=== PATIENT | female | born 1995 | race Caucasian/White ===

== ENCOUNTER 2017-05-22 09:49 | Emergency (ER) | payer OTHER | END 2017-05-22 11:00 | disposition home or self-care (01) | LOC: MADERS 09:49 | DX: J10.1 Influenza due to other identified influenza virus with other respiratory manifestations (principal); F41.9 Anxiety disorder, unspecified | CPT/HCPCS: 87804; 99283 ==

== ENCOUNTER 2017-08-15 16:15 | Emergency (ER) | payer MEDICAID, OTHER | END 2017-08-15 19:02 | disposition home or self-care (01) | LOC: MADERS 16:15 | DX: J02.9 Acute pharyngitis, unspecified (principal); F17.210 Nicotine dependence, cigarettes, uncomplicated | CPT/HCPCS: 87081; 87430; 87804; 99283 ==

== ENCOUNTER 2018-02-11 12:40 | Emergency (ER) | payer MEDICAID ==
[~2018-02-11 12:40] MED LIST: Sodium Chloride 0.9% 1,000 ML BAG ONE
[2018-02-11 13:13] LABS: Bilirubin Negative (Negative); Blood, Urine Trace (Negative); Glucose, Urine (Dipstick) Negative (Negative); Leukocyte Trace (Negative); Nitrite Negative (Negative); Protein, Urine (Dipstick) Negative (Neg-Trace); Urobilinogen 0.2 mg/dL (0.2-1.0); pH, Urine 6.5 (5.0-9.0)
[2018-02-11 13:14] LABS: #Basophils 0.1 thou/uL (0.0-0.2); #Lymphocytes 2.5 thou/uL (1.20-3.40); #Monocytes 0.5 thou/uL (0.11-0.59); #Neutrophils 4.4 thou/uL (1.40-6.50); %Basophils 0.9 % (0.0-1.0); %Eosinophils 0.6 % (0.0-10.0); %Lymphocytes 33.4 % (21.0-51.0); %Monocytes 6.8 % (0.0-10.0); %Neutrophils 58.3 % (42.0-75.0); Hemoglobin 15.1 g/dL (12.0-16.0); Mean Corpuscular HGB CONC 33.5 g/dL (32.0-36.0); Mean Corpuscular Hemoglobin 31.7 pg (27.0-31.0); Mean Corpuscular Volume 94.6 fL (78.0-98.0); Platelet Count 326 thou/uL (130-400); RBC Distribution Width 11.8 % (11.5-14.5); Red Blood Cell (RBC) Count 4.77 mill/uL (4.20-5.40); White Blood Cell (WBC) Count 7.6 thou/uL (4.8-10.8)
[2018-02-11 13:15] LABS: Clarity Hazy (Clear); Pregnancy Test - Urine (BHCG) Negative (Negative); Pregu Control Background? CLEAR/WHITE (CLR/WHITE); Pregu Control Bar Appear? YES (CONTROL BAR); Specific Gravity 1.003 (1.002-1.036)
[2018-02-11 13:16] LABS: Specific Gravity, Urine 1.003 (1.002-1.036)
[2018-02-11 13:18] LABS: Bacteria/HPF Rare-Few HPF (None Seen); RBC/HPF 0-3 HPF (0-3); Squamous Epithelial 0-3 HPF (0-3); WBC/HPF 0-3 HPF (0-3)
[2018-02-11 13:29] LABS: ALT (SGPT) 14 U/L (8-55); AST (SGOT) 20 U/L (5-34); Albumin 5.1 g/dL (3.5-5.0); Alcohol Less than 10 mg/dL (Less than 10); Alkaline Phosphatase 75 U/L (40-150); Anion Gap 16 mmol/L (10-20); BUN (Urea Nitrogen) 7 mg/dL (7.0-18.7); Bilirubin, Total 0.8 mg/dL (0.2-1.2); CK (CPK) 109 U/L (29-168); Calc. Creatinine Clearance 0 mL/min (70-130); Calcium 10.1 mg/dL (7.8-10.44); Carbon Dioxide 20 mmol/L (22-29); Chloride 106 mmol/L (98-107); Estimated GFR-MDRD Greater than 90; Globulin 3.1 g/dL (2.4-3.5); Glucose 103 mg/dL (70-105); Potassium 3.7 mmol/L (3.5-5.1); Protein, Total 8.2 g/dL (6.0-8.3); Sodium 138 mmol/L (136-145)
== END 2018-02-11 13:43 | disposition home or self-care (01) ==
LOC: MADERS 12:40
DX: F41.9 Anxiety disorder, unspecified (principal); F17.210 Nicotine dependence, cigarettes, uncomplicated
CPT/HCPCS: 80053; 80307; 81003; 81015; 81025; 82550; 85025; 96360; J7050

== ENCOUNTER 2018-11-01 14:56 | Outpatient (CLI) | payer OTHER ==
--- NOTE | 2018-11-01 15:17 | RAD ---
Abdomen 2 views HISTORY: Abdomen and pelvic pain. FINDINGS: Fluid, gas, and stool within the colon and rectum. No differential air-fluid levels or evid ence of free subdiaphragmatic gas. No radiopaque foreign bodies are apparent. Leftward convex curvature of the mid lumbar spine. IMPRESSION: No significant abnormalities are demonstrated.
== END 2018-11-01 14:57 | disposition home or self-care (01) ==
LOC: MADRAD 14:56
PROVIDERS: ATTEND Physician Assistant
DX: R10.2 Pelvic and perineal pain (principal)
CPT/HCPCS: 74019

== ENCOUNTER 2019-07-18 10:55 | Emergency (ER) | payer MEDICAID, SELFPAY ==
[~2019-07-18 10:55] MED LIST changes: +Iopamidol 370 76% 100 ML VIAL ONE; -Sodium Chloride 0.9% 1,000 ML BAG ONE
[2019-07-18] MEDS ORDERED: Promethazine HCl 25 MG/ML VIAL ONE (11:47)
[2019-07-18] MEDS ORDERED: Ondansetron PF 4 MG/2 ML Vial ONE ×2 (11:47→12:06)
[2019-07-18] MEDS ORDERED: Sodium Chloride 0.9% 1,000 ML ONE (11:47)
[2019-07-18 13:12] LABS: Bilirubin Negative (Negative); Blood, Urine Negative (Negative); Clarity Clear (Clear); Glucose, Urine (Dipstick) Negative (Negative); Leukocyte Negative (Negative); Nitrite Negative (Negative); Protein, Urine (Dipstick) Negative (Neg-Trace); Urobilinogen 0.2 mg/dL (Less than 2)
[2019-07-18 13:13] LABS: Pregnancy Test - Urine (BHCG) Negative (Negative); Pregu Control Background? CLEAR/WHITE (CLR/WHITE); Pregu Control Bar Appear? YES (CONTROL BAR)
[2019-07-18 13:27] LABS: #Lymphocytes 0.4 thou/uL (1.20-3.40); #Monocytes 0.3 thou/uL (0.11-0.59); #Neutrophils 4.7 thou/uL (1.40-6.50); %Basophils 0.5 % (0.0-1.0); %Eosinophils 0.1 % (0.0-10.0); %Monocytes 5.8 % (0.0-10.0); %Neutrophils 86.6 % (42.0-75.0); Hemoglobin 13.9 g/dL (12.0-16.0); Mean Corpuscular HGB CONC 31.7 g/dL (32.0-36.0); Mean Corpuscular Hemoglobin 30.5 pg (27.0-31.0); Mean Corpuscular Volume 96.3 fL (78.0-98.0); Mean Platelet Volume 6.6 fL (7.4-10.4); Platelet Count 195 thou/uL (130-400); RBC Distribution Width 11.1 % (11.5-14.5); Red Blood Cell (RBC) Count 4.54 mill/uL (4.20-5.40); White Blood Cell (WBC) Count 5.4 thou/uL (4.8-10.8)
[2019-07-18 13:45] LABS: ALT (SGPT) 13 U/L (8-55); AST (SGOT) 14 U/L (5-34); Albumin 4.3 g/dL (3.5-5.0); Alkaline Phosphatase 50 U/L (40-110); Anion Gap 15 mmol/L (10-20); BUN (Urea Nitrogen) 9 mg/dL (7.0-18.7); Bilirubin, Total 0.9 mg/dL (0.2-1.2); CRP (Inflammatory) 1.72 mg/dL (= or < 0.5); Calc. Creatinine Clearance 0 mL/min (70-130); Calcium 8.2 mg/dL (7.8-10.44); Carbon Dioxide 20 mmol/L (22-29); Chloride 109 mmol/L (98-107); Estimated GFR-MDRD Greater than 90; Globulin 2.6 g/dL (2.4-3.5); Glucose 93 mg/dL (70-105); Lipase 10 U/L (8-78); Potassium 4.1 mmol/L (3.5-5.1); Protein, Total 6.9 g/dL (6.0-8.3); Sodium 140 mmol/L (136-145)
--- NOTE | 2019-07-18 14:41 | CT ---
CT Abdomen Pelvis W Con History: Abdominal pain Comparison: Abdomen radiograph October 2018 Findings: Lung bases are clear. No pericardial effusion. Spleen measures 12.8 cm in length. Normal proximal small bowel rotation. The aortic contour is normal. Gallbladder, pancreas are normal. Normal renal enhancement. No hydronep hrosis. The adrenal glands are normal. No acute osseous abnormality. No retroperitoneal periaortic adenopathy. No dilated loops of large or small bowel. The appendix is visualized and is normal. Evaluation for re nal calculi is limited due to early contrast enhancement of the renal calyces. Impression: 1. Normal appendix. 2. No acute inflammatory process in the abdomen or pelvis. 3. Splenic size upper limits of normal.
== END 2019-07-18 15:06 | disposition home or self-care (01) ==
LOC: MADERS 10:55
DX: A09 Infectious gastroenteritis and colitis, unspecified (principal); R11.2 Nausea with vomiting, unspecified; F41.9 Anxiety disorder, unspecified; F17.210 Nicotine dependence, cigarettes, uncomplicated
CPT/HCPCS: 74177; 80053; 81003; 81025; 82150; 83690; 85025; 86140; 96365; 96375; J2405; J2550; J7050; Q9967

== ENCOUNTER 2020-04-06 12:03 | Emergency (ER) | payer SELFPAY ==
[2020-04-06] MEDS ORDERED: Ibuprofen 800 MG TAB ONE (12:52)
--- NOTE | 2020-04-06 13:04 | RAD ---
XR Ankle Rt 3 View STANDARD INDICATION: Inversion injury with right ankle pain COMPARISON: None. FINDINGS: Bones: No acute fracture or subluxation demonstrated. There is a small accessory ossicle seen adjacen t to the navicular. Ankle mortise: Symmetric. Talar Dome: Intact. Subtalar joint: Normal. Visualized hindfoot: Normal. Periarticular soft tissues: Normal. IMPRESSION: 1. No acute fracture or subluxation demonstrated.
--- NOTE | 2020-04-06 13:09 | RAD ---
Exam:3 views right foot HISTORY: Pain. Injury. COMPARISON: None FINDINGS: Lisfranc alignment is maintained. Joint spaces are preserved. No fracture, cortical irregul arity or periosteal reaction. Incidental os naviculare. IMPRESSION: No posttraumatic change.
== END 2020-04-06 13:49 | disposition home or self-care (01) ==
LOC: MADERS 12:03
DX: S96.911A Strain of unspecified muscle and tendon at ankle and foot level, right foot, initial encounter (principal); F41.9 Anxiety disorder, unspecified; F17.210 Nicotine dependence, cigarettes, uncomplicated; X50.9XXA Other and unspecified overexertion or strenuous movements or postures, initial encounter

== ENCOUNTER 2023-07-23 13:41 | Emergency (ER) | payer OTHER ==
[2023-07-23] MEDS ORDERED: Ondansetron PF 4 MG/2 ML Vial ONE (14:24)
[2023-07-23] MEDS ORDERED: Ketorolac Tromethamine 30 MG (1 mL) VIAL ONE (14:24)
[2023-07-23] MEDS ORDERED: Sodium Chloride 0.9% 1,000 ML ONE (14:25)
[2023-07-23 14:27] LABS: Bilirubin Negative (Negative); Blood, Urine Negative (Negative); Glucose, Urine (Dipstick) Negative (Negative); Ketone, Urine Negative (Negative); Leukocyte Small (Negative); Nitrite Negative (Negative); Protein, Urine (Dipstick) Negative (Neg-Trace); Urobilinogen 0.2 mg/dL (Less than 2); pH, Urine 6.5 (5.0-9.0)
[2023-07-23 14:35] LABS: Clarity Hazy (Clear); Pregnancy Test - Urine (BHCG) Negative (Negative); Pregu Control Background? CLEAR/WHITE (CLR/WHITE); Pregu Control Bar Appear? YES (CONTROL BAR)
[2023-07-23 14:38] LABS: CAUTI Indications for Culture Pelvic or flank pain; RBC/HPF 0-3 HPF (0-3); Squamous Epithelial 0-3 HPF (0-3)
[2023-07-23 14:39] LABS: Bacteria/HPF 1+ HPF (None Seen)
[2023-07-23 14:40] LABS: Urine Culture Reflex No No
[2023-07-23 14:42] LABS: ALT (SGPT) 19 U/L (8-55); AST (SGOT) 19 U/L (5-34); Albumin 4.3 g/dL (3.5-5.0); Alkaline Phosphatase 69 U/L (40-110); Anion Gap 14 mmol/L (10-20); BUN (Urea Nitrogen) 5 mg/dL (7.0-18.7); Bilirubin, Total 0.3 mg/dL (0.2-1.2); Calc. Creatinine Clearance 0 mL/min (70-130); Calcium 9.4 mg/dL (7.8-10.44); Carbon Dioxide 23 mmol/L (22-29); Chloride 104 mmol/L (98-107); Estimated GFR 114; Globulin 3.1 g/dL (2.4-3.5); Glucose 94 mg/dL (70-105); Potassium 3.4 mmol/L (3.5-5.1); Protein, Total 7.4 g/dL (6.0-8.3); Sodium 138 mmol/L (136-145)
[2023-07-23 14:44] LABS: Band 29 % (5-11); Hematocrit 36.7 % (36.0-47.0); Hemoglobin 12.3 g/dL (12.0-16.0); Lymphocytes 18 % (21-51); MDiff Complete? YES; Mean Corpuscular HGB CONC 33.4 g/dL (32.0-36.0); Mean Corpuscular Hemoglobin 31.3 pg (27.0-31.0); Mean Corpuscular Volume 93.9 fl (78.0-98.0); Mean Platelet Volume 7.1 fL (7.4-10.4); Monocytes 6 % (0-10); Neutrophil 47 % (42-75); Platelet Adequacy Comment Appears Adequate; Platelet Count 234 10x3/uL (130-400); RBC Distribution Width 11.6 % (11.5-14.5); Red Blood Cell (RBC) Count 3.91 mill/uL (4.20-5.40); White Blood Cell (WBC) Count 5.8 10x3/uL (4.8-10.8)
== END 2023-07-23 15:08 | disposition home or self-care (01) ==
LOC: MADERS 13:41
DX: N10 Acute pyelonephritis (principal); F17.290 Nicotine dependence, other tobacco product, uncomplicated
CPT/HCPCS: 80053; 81001; 81025; 85025; 96361; 96374; 96375; J1885; J2405; J7050

== ENCOUNTER 2024-12-23 10:01 | Emergency (ER) | payer OTHER ==
[2024-12-23 10:53] LABS: ALT (SGPT) 13 U/L (Less than 34); AST (SGOT) 18 U/L (11-34); Albumin 4.0 g/dL (3.1-4.5); Alkaline Phosphatase 55 U/L (40-110); Anion Gap 13 mmol/L (10-20); BUN (Urea Nitrogen) 4 mg/dL (7.0-18.7); Bilirubin, Total 0.3 mg/dL (0.3-1.2); CK (CPK) 48 U/L (29-168); Calc. Creatinine Clearance 0 mL/min (70-130); Calcium 8.9 mg/dL (7.8-10.44); Carbon Dioxide 24 mmol/L (22-29); Chloride 106 mmol/L (98-107); Globulin 2.8 g/dL (2.4-3.5); Glucose 80 mg/dL (70-105); Lipase 14 U/L (8-78); Potassium 3.6 mmol/L (3.5-5.1); Sodium 139 mmol/L (136-145); Troponin I Less than 0.010 ng/mL (< 0.028)
[2024-12-23 11:00] LABS: Anisocytosis SLIGHT = 6-15 cells (100X) (0-5/hpf); Hematocrit 40.4 % (36.0-47.0); Hemoglobin 13.3 g/dL (12.0-16.0); MDiff Complete? YES; Mean Corpuscular Hemoglobin 30.4 pg (27.0-31.0); Mean Corpuscular Volume 92.8 fl (78.0-98.0); Platelet Adequacy Comment Appears Adequate; Platelet Count 198 10x3/uL (130-400); Red Blood Cell (RBC) Count 4.35 mill/uL (4.20-5.40); White Blood Cell (WBC) Count 4.6 10x3/uL (4.8-10.8)
[2024-12-23] MEDS ORDERED: Acetaminophen 500 MG TAB ONE (11:05)
[2024-12-23 11:21] LABS: Pregnancy Test - Urine (BHCG) Negative (Negative); Pregu Control Background? CLEAR/WHITE (CLR/WHITE); Pregu Control Bar Appear? YES (CONTROL BAR)
== END 2024-12-23 11:40 | disposition home or self-care (01) ==
LOC: MADERS 10:01
DX: R07.81 Pleurodynia (principal); D72.825 Bandemia; F17.290 Nicotine dependence, other tobacco product, uncomplicated
CPT/HCPCS: 36415; 71046; 80053; 81025; 82550; 83690; 84484; 85025; 85379; 93005